=== PATIENT | female | born 1955 | race Two or more races ===

== ENCOUNTER 2024-12-18 11:05 | Day surgery (SDC) | payer MEDICARE, MEDICAID, SELFPAY ==
[2024-12-17 15:03] VITALS: BMI 20.7
[2024-12-18] VITALS (9 sets, daily range): BP systolic 130–171; BP diastolic 63–99; PULSE 62–74; RESP 12–20; TEMP 36.3–36.4; O2SAT 98–100; BMI 22.0
[2024-12-18] MEDS: RINGERS LACTATED 500 ML 500 ML 20 ML IV (12:53)
[2024-12-18] MEDS: fentaNYL CIT INJ 50 mCg/ML AMP 2ML (ASD USE ONLY) IVP (12:58)
[2024-12-18] MEDS: MIDAZOLAM INJ 1 MG/ML VIAL 2 ML (ASD USE ONLY) 2 MG IVP (12:58)
== END 2024-12-18 13:50 | disposition home or self-care (01) ==
PROVIDERS: PCP Family Medicine; Referring Provider Internal Medicine Gastroenterology; Visit Provider Internal Medicine Gastroenterology
PROC: 0DBE8ZX Excision of Large Intestine, Via Natural or Artificial Opening Endoscopic, Diagnostic (ICD-10-PCS; CPT 45380; principal; 2024-12-18 14:15)
DX: Z12.11 Encounter for screening for malignant neoplasm of colon (principal); D12.3 Benign neoplasm of transverse colon; K52.9 Noninfective gastroenteritis and colitis, unspecified; K64.8 Other hemorrhoids; I10 Essential (primary) hypertension
CPT/HCPCS: 45385; 45381; 45380; A4217; A4649; J2250; J3010; J7120